=== PATIENT | male | born 1990 ===

== ENCOUNTER 2016-11-03 22:24 | Emergency (ER) | payer MEDICAID ==
[2016-11-03 22:39] VITALS: BP 133/45; PULSE 84; RESP 18; TEMP 97.9; O2SAT 98
--- NOTE | 2016-11-03 23:22 | ED PDOC ---
HPI: General Adult Time Seen by Provider: 11/03/16 22:34 Chief Complaint (Nursing): Medical Clearance Chief Complaint (Provider): Fatigue History Per: Patient Additional Complaint(s): Unable to sleep for 3 weeks, and forgetfulness x 3 weeks. Pt has a baby x 3 weeks. Past Medical History Reviewed: Nursing Documentation, Vital Signs Vital Signs: Last Vital Signs Temp 97.9 F 11/03/16 22:34 Pulse 84 11/03/16 22:34 Resp 18 11/03/16 22:34 BP 133/45 L 11/03/16 22:34 Pulse Ox 98 11/03/16 22:34 - Medical History PMH: Asthma, Post Traumatic Stress Disorder - Surgical History Surgical History: No Surg Hx - Family History Family History: States: Unknown Family Hx - Living Arrangements Living Arrangements: With Family - Social History Current smoker - smoking cessation education provided: No Alcohol: None Drugs: Denies - Immunization History Hx Tetanus Toxoid Vaccination: Yes ("3 monsth ago") Hx Influenza Vaccination: No Hx Pneumococcal Vaccination: No - Home Medications Home Medications: Ambulatory Orders Medication Instructions Recorded Bacitracin Ointment [Bacitracin] 30 gm TOP BID #0 tube 04/13/14 Cephalexin [Keflex] 500 mg PO BID #14 cap 04/13/14 Amoxicillin/Clavulanate [Augmentin 1 tab PO BID #14 tab 03/19/16 875 MG-125 MG] - Allergies Allergies/Adverse Reactions: Allergies Allergy/AdvReac Type Severity Reaction Status Date / Time No Known Allergies Allergy Verified 04/13/14 14:52 Review of Systems ROS Statement: Except As Marked, All Systems Reviewed And Found Negative Physical Exam - Reviewed Nursing Documentation Reviewed: Yes Vital Signs Reviewed: Yes - Physical Exam Appears: Positive for: Well, Non-toxic, No Acute Distress Head Exam: Positive for: ATRAUMATIC, NORMAL INSPECTION, NORMOCEPHALIC Skin: Positive for: Normal Color, Warm, DRY Eye Exam: Positive for: EOMI, Normal appearance, PERRL ENT: Positive for: Normal ENT Inspection Neck: Positive for: Normal, Painless ROM Cardiovascular/Chest: Positive for: Regular Rate, Rhythm Respiratory: Positive for: CNT, Normal Breath Sounds Gastrointestinal/Abdominal: Positive for: Normal Exam, Bowel Sounds, Soft Back: Positive for: Normal Inspection Extremity: Positive for: Normal ROM Neurologic/Psych: Positive for: Alert, Oriented - ECG O2 Sat by Pulse Oximetry: 98 Medical Decision Making Medical Decision Making: Pt was unaware of Sleeping Habits. Pt educated to best of writers ability and Pt reports that him and his have been trying to stay awake to spend time together; however, he will start having her watch the baby at night so he can sleep and he will take the baby in the morning so she can sleep. Pt denies nay depression/anxiety like symptoms. no thoughts of harming himself, his or the baby Disposition - Clinical Impression Clinical Impression: Fatigue - Patient ED Disposition Is Patient to be Admitted: No - Disposition Disposition: Routine/Home Disposition Time: 23:22 Condition: STABLE Instructions: Fatigue (ED)
== END 2016-11-03 23:25 | disposition home or self-care (01) ==
LOC: H.ER 22:24
DX: R53.81 Other malaise (principal); F43.10 Post-traumatic stress disorder, unspecified